=== PATIENT | female | born 1990 | race Caucasian/White ===

== ENCOUNTER 2021-11-25 14:23 | Emergency (ER) | payer BC, MEDICAID ==
[2021-11-25 14:41] VITALS: BP 127/90; PULSE 81
[2021-11-25] MEDS ORDERED: Sodium Chloride 0.9% 10 ML Syringe FLUSH PRN (15:55)
[2021-11-25] MEDS ORDERED: LORazepam 2 MG/ML SDV IVPUSH ONE (16:37)
[2021-11-25] MEDS ORDERED: Metoclopramide 10 MG/2 ML SDV IVPUSH ONE (16:37)
== END 2021-11-25 18:12 | disposition home or self-care (01) ==
LOC: JD.ED 14:23
DX: R42 Dizziness and giddiness (principal)
CPT/HCPCS: 36415; 70450; 80053; 83735; 85025; 96374; 96375; 99284; J2060; J2765